=== PATIENT | female | born 2000 ===

== ENCOUNTER 2018-07-15 12:31 | Day surgery (SDC) | payer OTHER ==
[~2018-07-15 12:31] MED LIST: Buffered Lidocaine 1% SYRIN* 1 ML/SYRINGE INTRADERM ONE; Famotidine IV* 10 MG/ML 2 ML (20 mg) IV ONE; Lactated Ringers 1000 ML Bag* 1,000 ML IV SCH
[2018-07-15] MEDS ORDERED: Famotidine IV* 10 MG/ML 2 ML (20 mg) ONE (12:51)
[2018-07-15] MEDS ORDERED: Ondansetron INJ* 2 MG/ML VIAL ONE ×2 (14:29→16:54)
[2018-07-15] MEDS ORDERED: Propofol* 10 MG/ML 20 ML BTL ONE (14:29)
[2018-07-15] MEDS ORDERED: Dexamethasone IV* 4 MG/ML 1 ML (4 MG) ONE (14:29)
[2018-07-15] MEDS ORDERED: fentaNYL* 50 MCG/ML 2 ML VIAL (100 MCG VIAL) ONE (14:29)
[2018-07-15] MEDS ORDERED: Lidocaine 2% PF * 5 ML VIAL ONE (14:29)
[2018-07-15] MEDS ORDERED: Midazolam* 1 MG/ML 5 ML VIAL (5 MG) ONE (14:29)
[2018-07-15] MEDS ORDERED: Bupivacaine 0.25% SDV PF* 10 ML VIAL INJ ONE (15:26)
[2018-07-15] MEDS ORDERED: EPHEDrine (Pressors)* 50 MG/ML VIAL ONE (16:04)
[2018-07-15] MEDS ORDERED: Naloxone* 0.4 MG/ML 1 ML VIAL IV PRN (16:25)
[2018-07-15] MEDS ORDERED: fentaNYL* 50 MCG/ML 2 ML VIAL (100 MCG VIAL) IV PRN (16:25)
[2018-07-15] MEDS ORDERED: Ondansetron INJ* 2 MG/ML VIAL IV PRN (16:25)
[2018-07-15] MEDS ORDERED: DiMENhydriNATE IV* 50 MG/ML VIAL ONE (16:54)
[2018-07-15 17:53] VITALS: BP 122/65
--- NOTE | 2018-07-16 09:47 | OP ---
DATE OF OPERATION: 07/15/18 - MERGED WITH [facility] DATE OF : [birth year] SURGEON: Simone Rodriguez MD [employer]IN[employer]ING [employer] PATROLLER: YOLANDA Castro ANESTHESIOLOGIST: Dr. Rodriguez. ANESTHESIA: General. PRE-OP DIAGNOSES: 1. Left wrist de Quervain's disease. 2. Left distal forearm intersection syndrome. POST-OP DIAGNOSES: 1. Left wrist de Quervain's disease. 2. Left distal forearm intersection syndrome. OPERATIVE PROCEDURE: 1. Left de Quervain's release. 2. Left second dorsal compartment release with tenosynovectomy and release of the intersection of the first and second dorsal compartments. INDICATIONS: Anna has the pain. She definitely has de Quervain's, but she also has a lot of pain proximally at the intersection with tenderness. We talked about risks and benefits. She wants to proceed with the procedure. She understands the risk of sensory nerve injury and persistent pain. ESTIMATED BLOOD LOSS: 2 mL. COMPLICATIONS: None. FINDINGS: See above and below. DESCRIPTION OF PROCEDURE: Anna was seen in the preoperative holding area. The correct site, side, and procedure were identified. We came back to the operating room, and the arm was prepped and draped in the usual fashion and time -out was performed. The arm was exsanguinated with the Esmarch and the tourniquet was inflated to 250 mmHg. I made a 1 to 2 cm incision over the first dorsal compartment tendon just proximal to the radial styloid. Dissection was carried down and full- thickness flaps were raised off the sheath. Ragnell retractors were placed to protect the sensory nerve. The sheath was released off the dorsal margin. There was an accessory compartment. The septum to the accessory compartment was excised in its entirety. The release was completed distally and proximally with a tenotomy scissors. Once I had confirmed the release, I irrigated out the wound. I then came proximally and I made a 2 to 3 cm incision longitudinally over the intersection of the first and second dorsal compartments. Dissection was carried down. The first dorsal compartment tendons were tracked out of the way and the second dorsal compartment tendons were released proximally and distally. There was quite a bit of tenosynovitis around the second dorsal compartment tendons. This was excised in entirety. I followed the tendons down and excised all the tenosynovitis from underneath the extensor retinaculum , but I did not fully release the reticulum. After I had completely debrided the second dorsal compartment tendon, I irrigated out the wounds. The skin was closed with 4-0 Monocryl and Steri-Strips. A 0.25% Marcaine was infiltrated all around the operative area. A short-arm cock-up wrist splint was applied and she was taken to the recovery room in stable condition. [id number] #: [id number] MAUREEN
== END 2018-07-15 18:15 | disposition home or self-care (01) ==
LOC: OR 12:31
PROVIDERS: ATTEND Orthopaedic Surgery Hand Surgery
DX: M65.4 Radial styloid tenosynovitis [de Quervain] (principal); M65.832 Other synovitis and tenosynovitis, left forearm; F41.8 Other specified anxiety disorders; G40.909 Epilepsy, unspecified, not intractable, without status epilepticus
CPT/HCPCS: 81025; J1100; J1240; J2250; J2405; J2704; J3010; J3490